=== PATIENT | female | born 1970 | race Caucasian/White ===

== ENCOUNTER 2021-08-24 11:35 | Inpatient (IN) | payer SELFPAY ==
[2021-08-19 12:07] LABS: Hematocrit 33.7 % (37-47); Hemoglobin 10.1 g/dL (12.0-15.0); Mean Corpuscular Volume 76.6 fL (81-99); Mean Platelet Vol. 9.8 fl (6.2-12.0); Platelet Count 310 K/mm3 (150-450); RBC Distribution Width CV 17.7 % (11.6-14.6); White Blood Count 6.9 K/mm3 (4.4-11.0)
[2021-08-19 12:22] LABS: International Normalized Ratio 1.1; Prothrombin Time (Protime)PT. 13.8 SECONDS (11.7-14.9)
[2021-08-19 12:47] LABS: Internal QC Validated? YES +Cl - CLEAR BKGD; Pregnancy, Serum, hCG Quali. NEGATIVE Negative
[2021-08-19 12:47] LABS: Creatinine, Serum 0.84 mg/dL (0.55-1.02); EST Glomerular Filtration Rate 77 mL/min (>60); Est Glom Filt Rate - Afr Amer 93 mL/min (>60); Magnesium 2.5 mg/dL (1.6-2.6)
--- NOTE | 2021-08-23 17:17 | PCM.HP.BLA ---
History and Physical Date of Admission: 08/24/21 Surgical History and Physical Chel Warren, a 51 year old female 9 0 5 0 9, presents for BORA/BS on August 24, 2021 at 1:30. -- Large Symptomatic Fibroids -- Chel presents here today with spouse(Homero) with concerns regarding Fibroid Uterus getting bigger and causing pressure and heavier menses. 53 y.o. G 15 P 9 non-smoker with regular menses and LMP of 10-14-21 lasting her average of 7 - 10 days. Reports that she has noticed a change in the last year, and felt it was time to do something about it. Had US 3 years ago with last pap screening at Dr. Green's [facility] showing the Fibroid at that time. Heavy menses and low back pain a problem for her. Fibroid Uterus which began 3 years. Chel claims it started gradually and has been present Bigger and heavier bleeding. It occurs all the time. It is located in the vagina.; It is located in the lower abdomen. Chel characterizes it to be upwards to the back. Chel characterizes the quality heavy.; Chel characterizes the quality pressure. Severity is moderate and not improving; Additional comments are: US 3 years ago.; Additional comments are: was 17 cm at that time; now bigger. MEDICATIONS HISTORY: ALLERGIES: No Known Allergies Infections - Chicken pox and Measles Illnesses - no serious past illnesses Accidents - None Hospitalizations - Childbirth Review of Systems: GENERAL - Denies fever, or chills SKIN - Denies skin changes EYES - Denies visual changes EARS - Denies difficulty hearing NOSE - Denies nasal congestion or bleeding MOUTH - Denies sore throat or difficulty swallowing NECK - Denies pain or swelling RESPIRATORY - Denies shortness of breath or wheezing CARDIOVASCULAR - Denies palpitations or chest pain GASTROINTESTINAL - Denies nausea, vomiting, diarrhea, constipation GENITOURINARY - Denies dysuria, frequency of urination, incontinence of urine MUSCULOSKELETAL - Denies joint or muscle pain NEUROLOGICAL - Denies localized numbness or weakness PSYCHIATRIC - Denies depression or anxiety ENDOCRINE - Denies heat or cold intolerance, weight loss or gain HEMATO-IMMUNOLOGIC - Denies excesive bleeding with cuts SOCIAL HISTORY: Alcohol Use - None Smoking - Never Diet - no special diet Lifestyle - moderate stress lifestyle and Exercise - active work Seat Belt Use - occasional Employer - [employer] Illicit Drug Use - None Sexual Activity - Spouse-Sig Other Name - Homero Spouse-Sig Other Occupation - [employer] Children Name(s) - 9 children Control - Natural Family Planning FAMILY HISTORY: MENSTRUAL HISTORY: LMP Known?- DefiniteAmount/Duration - 7 to 10 days, Regularity - Regular, Frequency - monthly days, LMP - 08/04/21, Age Onset Menarche - 15 PAST PREGNANCIES: Total Pregnancies - 15; Full Term Pregnancies - 9; Premature - 0; Abortions, Induced - 0; Abortions, Spontaneous - 5; Ectopics - 0; Multiple Births - 0; Living Children - 9 PHYSICAL EXAM BP- 126/72 Sitting, Right arm, regular cuff Weight- 205.0 lbs Height- 67 inch BMI:32.1 CONSTITUTIONAL - NAD, well nourished, and well developed SKIN - No rash, lesions, or ulcers HEENT - Normocephalic, PERRLA, EOMI NECK - No nodes, no nuchal rigidity and thyroid normal size and texture LYMPH NODES - Palpation of lymph nodes in neck and groins within normal limits LUNGS - CTA x2 without wheezes, crackles or rales CARDIAC - Regular rate and rhythm without rubs, murmurs, or gallops ABDOMEN - Without hepatosplenomegaly, distention, masses, rebound, or guarding; normal bowel sounds; no hernias and 18-19 cm uterus EXTREMITIES - No edema or calf tenderness NEUROLOGICAL - Cranial nerves II-XII grossly intact PSYCHIATRIC - A and O to time, place, person, mood and affect External Genitial Vagina - non-tender without lesions Urethra/Urethral Meatus - non-tender Bladder - non-tender Vagina - vaginal hale are pink and moist without loss of rugae and no evidence of atropy Cervix - without cervical motion tenderness and has normal size and features without evident lesions Uterus - 18-19 cm sized fibroid uterus noted on exam Adnexa - clear without massess or tenderness ASSESSMENT/PLAN: 1. Uterine Leiomyoma Unspec Large and symptomatic. Larger now 18-19 cm. Pt desires removal. Plan to proceed with BORA/RS. Discussed RBaS and all questions answered.
[2021-08-24] VITALS (14 sets, daily range): BP systolic 107–136; BP diastolic 55–68; PULSE 69–98; RESP 16–20; TEMP 36.2–37.1; O2SAT 93–100; BMI 31.1; BMI 31.0
[2021-08-24 12:20] LABS: Internal QC Validated? YES +Cl - CLEAR BKGD; Pregnancy, Urine Negative Negative
[2021-08-24] MEDS: Gabapentin 600 MG Tablet PO (12:46)
[2021-08-24] MEDS: Acetaminophen 500 MG Tablet 1000 MG PO ×2 (12:46→17:45)
[2021-08-24] MEDS: Lactated Ringers 1,000 ML 40 ML IV ×2 (12:47→15:15)
--- NOTE | 2021-08-24 13:02 | OP.PCM_ITS ---
Report of Operation Date of Procedure: 08/24/21 Pre-Operative Diagnosis: Menorrhagia, Large Symptomatic Uterine Fibroids Post-Operative Diagnosis: Menorrhagia, Large Symptomatic Uterine Fibroids Surgery/Procedure Performed:: Total Abdominal Hysterectomy and Bilateral Salping ectomy and Right Oophorectomy Description of Surgical Findings:: 22 cm fibroid uterus with normal-appearing fallopian tubes and ovaries. Right ovary and tube spread across the posterior aspect of the uterus and fibroid. Right ovary adhered to posterior right uterus on a long vascular stalk. Surgeon: Tonio Wallace naphthol soaping machine operator: Jean Poole Type of Anesthesia: General (Endotracheal) Anesthesiologist: Dillon Gaviria Specimen's removed: Uterus and bilateral fallopian tubes, right ovary Drains: Enriquez to straight drain Estimated Blood Loss (mL): 100 cc Fluids Replaced: Crystalloid Description of Procedure: Surgeon: Tonio Wallace MD, FACOG Indications: This is a 51-year-old patient who his been having problems with extremely heavy periods and large symptomatic uterine fibroids. Given this the patient desires that we proceed with the above procedure. She has been counseled regarding the risk and indications of this procedure including the possibility of bleeding, infection, and injury to surrounding structures such as bowel bladder. She understands that if both ovaries need to be removed that she will need to be on hormone replacement for an indefinite period of time. All questions were answered. Procedure: Patient was taken to the operating room where after induction of general anesthesia she was prepped and draped in the usual sterile fashion. A Enriquez catheter was placed. The abdomen was entered through a Pfannenstiel incision and peritoneal cavity was entered bluntly. The uterus was delivered through the Pfannenstiel incision and mesosalpinx were ligated with 0 Vicryl suture to the uterus. Round ligaments were identified and ligated with 0 Vicryl suture. The right infundibu lopelvic ligament was ligated as leaving the ovary in place would have left approximately a 5 cm thin pedicle with the ovary at the end. A bladder flap was developed and progressive bites were then taken down on either side of the uterine cervix ligating each pedicle with 0 Vicryl suture. The fibroid uterus was removed from the cervical stump and Clary retractor was placed. Progressive bites were continued on either side of the uterine cervix and final bites across the vaginal cuff incorporated the uterosacral ligaments into the vaginal cuff using 0 Vicryl suture and multiple [id number] sutures were placed across the vaginal cuff. Vaginal cuff and pelvic sidewall pedicles were oversewn where necessary to achieve hemostasis. Pelvis was copiously irrigated removing all clot. Aspen retractor was removed and rectus abdominis muscles were reapproximated in the midline with interrupted 0 Vicryl suture. 0 PDS strata fix was used to close the fascia in a running fashion and subcutaneous tissue was copiously irrigated with saline solution before closing with 3-0 Vicryl suture. 3-0 Monocryl suture was then used in running fashion to reapproximate skin edges area and Steri-Strips placed across the incision. A Mepilex dressing was then placed as well. Patient tolerated the procedure well was taken to recovery room in satisfactory condition; sponge instrument and needle counts were all reportedly correct. Estimated blood loss for the case was 100 cc. Ancef 2 g IV was given prior to beginning the operative procedure. There were no apparent complications of the surgery. Specimen to pathology was uterus and bilateral fallopian tubes and right ovary. Grafts/Implants Used: None Complications None Admit VTE Documentation VTE Present on Admission: Yes VTE Mechan Device Prophylaxis: SCD's VTE Pharm Prophylaxis ordered?: Yes
[2021-08-24 13:20] LABS: Bedside Glucose 89 mg/dL (70-110)
[2021-08-24] MEDS: Cefazolin 2 GM in 0.9% Normal Saline 100 ML IV (13:42)
--- NOTE | 2021-08-24 13:45 | HYST_PTH ---
PATIENT: RANDALL PHAM LOC: [facility] U#:[id number] AGE/SX: 51/F ROOM: [facility]305 RE08/24/[address]: Dr. Tonio Wallace MD : 1970 BED: 1 DIS: 08/25/2021 SPEC #: [id number] RECD: 08/24/21 16:45 STATUS: CURTIS REDeana #: [id number] EAGLE: 08/24/21 13:[address]: Tonio Wallace DEPT: SURGICAL PATHOLOGY RECD BY: Radha Boggs ENTERED: 08/25/21 09:32 SP TYPE: HYSTERECT OTHR DR: MD Dr. Dave Barton DO Tissues: Uterus, NOS Procedures: Decalcification bone/plaque Surgery Specimen Level V HEADER OPERATION: ERAS, hysterectomy, BORA, salpingectomy PRE-OP DIAGNOSIS: Uterine leiomyoma TISSUE SUBMITTED: Uterus, bilateral fallopian tubes, right ovary MICROSCOPIC DIAGNOSIS Uterus, bilateral fallopian tubes, right ovary, hysterectomy, bilateral salpingectomy and right oophorectomy: Cervix ? acute and chronic cystic cervicitis. Endometrium ? secretory endometrium. Myometrium ? a large intramural leiomyoma (15 cm in diameter). - Focal adenomyosis. Bilateral fallopian tubes - no pathologic diagnosis. Right ovary ? physiologic follicular cysts. Hyalinized and calcified nodule right cornua, serosal surface. SJ:parker 08/27/2021 MICROSCOPIC DESCRIPTION Slides are reviewed. GROSS DESCRIPTION Received in fixative is one container labeled with the patient's name and designated uterus, bilateral fallopian tubes, right ovary. The specimen consists of a hysterectomy specimen consisting of a uterus, attached right fallopian tube and ovary, detached cervix and detached left fallopian tube. The uterus and detached cervix weigh in aggregate 1470 gm. The detached cervix measures 6 x 3 x 2.5 cm. The ectocervical mucosa is unremarkable. The external os is slit-like in contour. The endocervical canal measures 5.5 cm in length. The uterus measures 20 x 12 x 13 cm. The endometrial cavity is compressed to one side and measures 7 cm in length and up to 4 cm in width. The endometrium is west, glistening without any mass lesion and measures 0.4 cm in thickness. Sections of the uterine wall reveal a large intramural nodular mass measuring 15 cm in diameter. Sections of this mass reveals west whorled cut surfaces without areas of hemorrhage, necrosis or cystic degeneration. The uninvolved uterine wall measures up to 4 cm in thickness. The right fallopian tube measures 6.5 cm in length and 0.5 cm in diameter. The fimbrial end is identified. Sections reveal unremarkable cut surfaces. The soft to cystic right ovary measures 2.5 x 2 x 1 cm. Sections reveal two cysts filled with clear fluid measuring 0.5 and 0.7 cm in greatest dimension. The left fallopian tube is similar appearance to right and measures 5.5 cm in length and 0.6 cm in diameter. Also present close to the right cornu, a calcified nodule measuring 0.5 cm in diameter. Auto Rental Clerk sections are submitted in 13 cassettes as follows: 1 - anterior cervix, 2??posterior cervix, 3 & 4 - anterior uterine wall, 5 & 6 - posterior uterine wall, 7-9 - nodular mass, 10??right fallopian tube, 11 - right ovary, 12 - left fallopian, 13 - calcified nodule after decalcification. / SJ:parker 08/25/21 TC:1 CPT: 15606, 00649
--- NOTE | 2021-08-24 15:55 | PCM.DC ---
Discharge Instructions Diet Discharge Diet: No restrictions (do what you feel comfortable, but do not over do it. You may climb stairs, just use caution and hold the railing.) Activity May resume sexual activity in: 6 weeks (nothing in the vagina.) Lifting Restrictions: 25 pounds for 6 weeks. Dressing / Incision Call your doctor if your incision/area has: Continuous Slow Oozing, Sudden Increased Bleeding, Increased Pain/ Swelling, Increased Redness and Foul Smelling Discharge Call your doctor if you observe: Fever of 101 or Higher, Inability to urinate, Inability to have a bowel movement, Using more than 1 pad per hour and - (Some vaginal bleeding may be noted for up to 4-8 weeks.) Cleanse incision/area with: - (Let the soapy water run over your incision, rinse and pat dry.) Additional Dressing/Incision Instructions:: The white strips (Steri Strips) on your incision will fall off on their own. Follow Up Care Please Follow Up With: Tonio Wallace MD When: Call [phone] for an appointment to be seen in 2 weeks. Test Results: Test results from this visit will be discussed in further detail at your follow-up appointment, if applicable. Discharge Plan Admission Admit Date/Time: 08/24/21 11:35 Primary Reason for Your Visit: Abdominal Hysterectomy Attending Provider: Tonio Wallace Primary Care Provider: Dave Green Consulting Providers: Ryan Edmnod Discharge Orders/Prescriptions Prescriptions: New oxycodone 5 mg capsule 5 mg PO Q6H PRN (Reason: pain) 7 Days Qty: 14 RF: 0 docusate sodium 100 mg tablet 100 mg PO BID PRN (Reason: constipation) Qty: 60 RF: 1 Continued calcium 500 mg Tablet 500 mg PO DAILY RF: 0 potassium 99 mg Tablet 99 mg PO DAILY RF: 0 ascorbic acid (vitamin C) [Vitamin C] 500 mg Tablet 500 mg PO DAILY RF: 0 magnesium 250 mg Tablet 250 mg PO DAILY RF: 0 [id number]-[id number] 3,6,9 5 400-400-200 mg Capsule 1 cap PO DAILY RF: 0 Referrals / Follow Up: Dave Green, [Primary Care Provider] - Disposition Disposition (needs filled in before D/C Order can be placed): Home, Self Care
[2021-08-24] MEDS: Cefazolin 1 GM/50 ML BAG IV (22:23)
[2021-08-24] MEDS: Docusate Sodium 100 MG Capsule PO (22:25)
[2021-08-24] MEDS: Enoxaparin 30 MG/0.3 ML Syringe SC (23:38)
[2021-08-25] MEDS: Acetaminophen 500 MG Tablet 1000 MG PO ×3 (00:17→13:37)
[2021-08-25] MEDS: Cefazolin 1 GM/50 ML BAG IV (05:53)
--- NOTE | 2021-08-25 07:09 | PCS.PANDOC ---
PANDEMIC DOCUMENTATION INITIATED: Date: 05/11/2021 Time: 190
[2021-08-25 07:13] LABS: Hematocrit 31.3 % (37-47); Hemoglobin 9.7 g/dL (12.0-15.0); Mean Corpuscular Hgb 23.4 pg (27.0-32.0); Mean Corpuscular Volume 75.4 fL (81-99); Mean Platelet Vol. 10.3 fl (6.2-12.0); Platelet Count 249 K/mm3 (150-450); RBC Distribution Width CV 17.6 % (11.6-14.6); Red Blood Count 4.15 M/mm3 (4.2-5.4)
[2021-08-25 07:51] LABS: Creatinine, Serum 0.79 mg/dL (0.55-1.02); EST Glomerular Filtration Rate 82 mL/min (>60); Est Glom Filt Rate - Afr Amer 99 mL/min (>60)
--- NOTE | 2021-08-25 08:37 | PCM.PN.OB ---
Subjective Subjective Pt without complaints. Tolerating diet well. Positive flatus. Minimal vaginal bleeding. Vag pack out. Homegoing instructions given. Return 2 weeks. Objective Data Objective Data Vital Signs: Vital Signs Temp Pulse Resp BP Pulse Ox 98.7 F 92 16 130/66 H 97 08/24/21 23:58 08/24/21 23:58 08/24/21 23:58 08/24/21 23:58 08/24/21 23:58 Oxygen Flow Rate (L/min) 6 Oxygen Delivery Method Room Air Weight: 204 lb Body Mass Index (BMI) 31.0 Intake & Output: Intake and Output for Last 24 Hours 08/23/21 08/24/21 08/25/21 23:59 23:59 23:59 Intake Total 1265.5 / 1265.5 50 / 50 Output Total 700 / 1400 2450 / 2450 Balance 565.5 / -134.5 -2400 / -2400 Lab / Micro Data Result Diagrams: 08/25/21 06:10 08/25/21 06:10 Labs: Laboratory Results - last 24 hr 08/24/21 11:58: Urine Test Negative 08/24/21 12:15: POC Glucose 89 08/25/21 06:10: Creatinine 0.79, Estim Creat Clear Calc 86.90, Est GFR (MDRD) Af Amer 99, Est GFR (MDRD) Non-Af 82 08/25/21 06:10: WBC 12.0 H, RBC 4.15 L, Hgb 9.7 L, Hct 31.3 L, MCV 75.4 L, MCH 23.4 L, MCHC 31.0 L, RDW Std Deviation 48.0 H, RDW Coeff of Vanessa 17.6 H, Plt Count 249, MPV 10.3 Micro: Microbiology 08/19/21 10:31 Interface Orders SARS-CoV-2 Antigen (Rapid) - Final
[2021-08-25] MEDS: Docusate Sodium 100 MG Capsule PO (09:42)
--- NOTE | 2021-08-25 10:08 | CASEMGMT ---
DONNA KRUGER Assessment: Face to Face with pt for initial transition planning/care coordination assessment. RN SASKIA introduced self and role at [facility], pt voices understanding and consents to assessment. Pt is A/O x4 and answers all questions appropriately at this time. Pt lying in bed in no distress with at bedside. Care providers, pharmacy, and demographics verified/updated. Admitting Dx: BORA bilat salpingectomy PCP: Peter Specialists:Madison TEMPLE MARKER Preferred Pharmacy: [facility] Retail Insurance: [facility] Package Plan Prescription Benefit: no LW/HPOA: Pt denies having a LW/DPOA and denies need for info regarding AD. LNOK: Homero Briana, Living Arrangements: Pt lives with and 7 children in a two story house with 4 steps to enter with a rail. Pt reports she is I in ADL's and denies concerns at home. Transportation: Pt hires drivers for transportation and medical appts. DME/HHC/SNF: Pt has a w/c at home. Denies hx of HHC or SNF stays. Pt states no concerns with going home at time of dc. Pt states no further concerns/needs. CM to follow. Advised pt to ask CM if any further question/concerns/needs arise, voices understanding. Pt Goal: Home Plan: Home
[2021-08-25 10:14] VITALS: O2SAT 98
--- NOTE | 2021-08-25 12:14 | PHA.DC.MC ---
Pharmacy Service has performed discharge medication reconciliation and counseling for this patient. 1. DOCUSATE 100MG PO BID PRN CONSTIPATION 2. OXYCODONE 5MG PO Q6H PRN PAIN The patient's discharge medication list was reviewed for discrepancies and discrepancies were resolved. Home Medications ascorbic acid (vitamin C) [Vitamin C] 500 mg PO DAILY 08/18/21 calcium 500 mg PO DAILY 08/18/21 [id number]-[id number] 3,6,9 5 1 cap PO DAILY 08/18/21 magnesium 250 mg PO DAILY 08/18/21 potassium 99 mg PO DAILY 08/18/21 docusate sodium 100 mg PO BID PRN #60 tab 08/24/21 oxycodone 5 mg PO Q6H PRN 7 Days #14 cap 08/24/21 The patient was counseled on the following discharge medications and changes in medications for homegoing were reviewed. The Reason for Use, instructions for use, and potential side effects were reviewed for all new medications. The patient's questions regarding all of their medications were answered. The patient was able to verbally demonstrate an understanding of their discharge medications.
== END 2021-08-25 15:13 | disposition home or self-care (01) | DRG 743 ==
LOC: ACINP 11:41 → MS3 08-25 07:08
PROVIDERS: Anesthesiology; Admitting Provider Obstetrics & Gynecology; PCP Family Medicine; Referring Provider Obstetrics & Gynecology; Visit Provider Obstetrics & Gynecology
PROC: 0UT90ZZ Resection of Uterus, Open Approach (ICD-10-PCS; CPT 58150; principal; 2021-08-24 13:25)
DX: D25.9 Leiomyoma of uterus, unspecified (principal); N92.0 Excessive and frequent menstruation with regular cycle
CPT/HCPCS: 36415; 81025; 82565; 82962; 83735; 84703; 85027; 85610; 85730; 86850; 86900; 86901; 87426; 88307; 88311; 99251; C9803; J7120; G0463; J2405; J3490